=== PATIENT | male | born 1950 | race Caucasian/White ===

== ENCOUNTER 2020-03-25 22:24 | Emergency (ER) | payer BC, MEDICARE ==
--- NOTE | 2020-03-25 23:21 | ER Document Report ---
ED Medical Screen (RME) - General Chief Complaint: Urinary Problem Stated Complaint: URINARY TRACT INFECTION Time Seen by Provider: 03/25/20 23:18 Primary Care Provider: JOE VIRAMONTES FNP-C [Primary Care Provider] - Follow up as needed Information source: Patient Notes: Patient presents complaining of UTI. Patient reports burning with urination and hematuria. Patient reports fever of 100 at home. No nausea vomiting. Patient denies any abdominal tenderness or flank pain. Patient does have a history of hypertension, COPD and prediabetes. I have greeted and performed a rapid initial assessment of this patient. A comprehensive ED assessment and evaluation of the patient, analysis of test results and completion of the medical decision making process will be conducted by additional ED providers. - Related Data Allergies/Adverse Reactions: ibuprofen [Ibuprofen] Allergy (Severe, Verified 06/22/13 17:59) Facial swelling Past Medical History - Past Medical History Cardiac Medical History: Reports: Hx Hypertension GI Medical History: Reports: Hx Gastroesophageal Reflux Disease Past Surgical History: Reports: Hx Appendectomy, Hx Bowel Surgery - Immunizations Hx Diphtheria, Pertussis, Tetanus Vaccination: Yes - 2007 Physical Exam - Vital signs Vitals: Temp Pulse Resp BP Pulse Ox 98.3 F 108 H 20 157/83 H 95 03/25/20 23:08 03/25/20 23:08 03/25/20 23:08 03/25/20 23:08 03/25/20 23:08 - Back Back: Normal, Nontender. No: CVA tenderness Course - Vital Signs Vital signs: Temp Pulse Resp BP Pulse Ox 98.3 F 108 H 20 157/83 H 95 03/25/20 23:08 03/25/20 23:08 03/25/20 23:08 03/25/20 23:08 03/25/20 23:08 Doctor's Discharge - Discharge Referrals: JOE VIRAMONTES FNP-C [Primary Care Provider] - Follow up as needed
[2020-03-26 00:44] LABS: ABSOLUTE BASOPHILS # (AUTO) 0.1 10^3/uL (0.0-0.2); ABSOLUTE EOSINOPHILS # (AUTO) 0.1 10^3/uL (0.0-0.6); ABSOLUTE LYMPHOCYTES (AUTO) 2.5 10^3/uL (0.5-4.7); ABSOLUTE MONOCYTES (AUTO) 1.2 10^3/uL (0.1-1.4); ABSOLUTE NEUT (AUTO) 13.1 10^3/uL (1.7-8.2); BASOPHILS % (AUTO) 0.5 % (0-2); EOSINOPHILS % (AUTO) 0.5 % (0-6); HEMATOCRIT 44.3 % (37.9-51.0); HEMOGLOBIN 14.8 g/dL (13.5-17.0); LYMPHOCYTES % (AUTO) 14.7 % (13-45); MEAN CORPUSCULAR HEMOGLOBIN 28.6 pg (27.0-33.4); MEAN CORPUSCULAR HGB CONC 33.5 g/dL (32.0-36.0); MEAN CORPUSCULAR VOLUME 85 fl (80-97); MONOCYTES % (AUTO) 6.8 % (3-13); PLATELET COUNT 327 10^3/uL (150-450); RED BLOOD COUNT 5.19 10^6/uL (4.35-5.55); RED CELL DISTRIBUTION WIDTH 15.2 % (11.5-14.0); SEGMENTED NEUTROPHILS % (AUTO) 77.5 % (42-78); TOTAL CELLS COUNTED % (AUTO) 100 %
[2020-03-26 00:54] LABS: ALBUMIN 4.6 g/dL (3.5-5.0); ALKALINE PHOSPHATASE 109 U/L (38-126); ANION GAP 10 (5-19); ASPARTATE AMINO TRANSFERASE 26 U/L (17-59); BILIRUBIN,TOTAL 0.5 mg/dL (0.2-1.3); BLOOD UREA NITROGEN 17 mg/dL (7-20); CALCIUM 9.6 mg/dL (8.4-10.2); CARBON DIOXIDE 30 mmol/L (22-30); CHLORIDE 98 mmol/L (98-107); GLUCOSE 130 mg/dL (75-110); TOTAL PROTEIN 8.2 g/dL (6.3-8.2)
[2020-03-26 01:25] LABS: APPEARANCE,URINE CLOUDY; BILIRUBIN,URINE NEGATIVE (NEGATIVE); COLOR,URINE YELLOW; GLUCOSE, URINE NEGATIVE (NEGATIVE); KETONES,URINE NEGATIVE (NEGATIVE); LEUKOCYTE ESTERASE,URINE LARGE (NEGATIVE); NITRITE,URINE NEGATIVE (NEGATIVE); PROTEIN,URINE NEGATIVE (NEGATIVE); URINE SPECIFIC GRAVITY 1.018; UROBILINOGEN,URINE NEGATIVE mg/dL (<2.0)
[2020-03-26 01:40] LABS: ADD MANUAL MICROSCOPIC YES
[2020-03-26] MEDS ORDERED: CEFTRIAXONE INJ 1000 MG VIAL IM ONE (03:30)
[2020-03-26] MEDS ORDERED: LIDOCAINE 1% INJ-PF (10 MG/ML) 30 ML SDV INJ ONE (03:30)
[2020-03-26] MEDS ORDERED: PHENAZOPYRIDINE HCL 200 MG TABLET PO ONE (03:30)
--- NOTE | 2020-03-26 03:37 | ER Document Report ---
ED General - General Chief Complaint: Urinary Problem Stated Complaint: URINARY TRACT INFECTION Time Seen by Provider: 03/25/20 23:18 Primary Care Provider: JOE VIRAMONTES FNP-C [Primary Care Provider] - Follow up as needed Notes: 70-year-old male presents emergency department complaining of UTI. States that yesterday he developed burning with urination, decreased flow but denies any flank pain or frequency. Saw his primary care physician was placed on Keflex, states that he had improved flow but worsening pain. Was not started on Pyridium or Azo. States he was told to come to the emergency department should his temperature hit 100.4 or higher. Patient states that when it hit 100.0 he came to the emergency department. Denies altered mental status, denies history of recurrent urinary tract infection, denies penile discharge. - Related Data Allergies/Adverse Reactions: ibuprofen [Ibuprofen] Allergy (Severe, Verified 03/25/20 23:22) Facial swelling latex Allergy (Verified 03/25/20 23:22) Home Medications: keflex, lisinopril/hctz, omeprazole, symbicort, albuterol, flonase,. singlair, flexeril Past Medical History - General Information source: Patient - Social History Smoking Status: Former Smoker Family History: Reviewed & Not Pertinent Patient has homicidal ideation: No - Past Medical History Cardiac Medical History: Reports: Hx Hypertension GI Medical History: Reports: Hx Gastroesophageal Reflux Disease Past Surgical History: Reports: Hx Appendectomy, Hx Bowel Surgery - Immunizations Hx Diphtheria, Pertussis, Tetanus Vaccination: Yes - 2007 Review of Systems - Review of Systems Constitutional: See HPI, Fever EENT: No symptoms reported Genitourinary: See HPI Male Genitourinary: See HPI -: Yes All other systems reviewed and negative Physical Exam - Vital signs Vitals: Temp Pulse Resp BP Pulse Ox 98.3 F 108 H 20 157/83 H 95 03/25/20 23:08 03/25/20 23:08 03/25/20 23:08 03/25/20 23:08 03/25/20 23:08 Interpretation: Hypertensive, Tachycardic - Notes Notes: GENERAL: Alert, interacts well. No acute distress. HEAD: Normocephalic, atraumatic EYES: Pupils equal, round and reactive to light, extraocular movements intact. ENT: Oral mucosa moist, tongue midline. NECK: Full range of motion, supple, trachea midline. LUNGS: Clear to auscultation bilaterally, no wheezes, rales or rhonchi, no respiratory distress. HEART: Regular rate and rhythm, no murmurs, gallops, rubs. ABDOMEN: Soft, nontender, nondistended, bowel sounds present in all 4 quadrants. No CVA tenderness to percussion. EXTREMITIES: Moves all 4 extremities spontaneously, no edema, radial and dorsalis pedis pulses 2/4 bilaterally. No cyanosis. NEUROLOGICAL: Alert and oriented x3, normal speech. PSYCH: Normal mood, normal affect. SKIN: Warm, Dry, normal turgor, no rashes or lesions noted. Course - Re-evaluation Re-evalutation: 03/26/20 03:38 CBC shows leukocytosis at 17, CMP unremarkable, urinalysis shows large blood and large leukocyte esterase. This is been sent for culture. Patient is already on Keflex however I will give him a shot of Rocephin as well in case Keflex will not cover this urinary tract infection. Patient has no signs of sepsis, no si gns of altered mental status. Patient will be discharged home on Ezol and urine has been sent for culture. Patient is agreeable with plan. Discharged home. As there is no flank pain and the microscopic on this urine only shows 5-10 RBCs very low suspicion for kidney stone. 03/26/20 03:39 - Vital Signs Vital signs: Temp Pulse Resp BP Pulse Ox 98.5 F 104 H 20 137/68 H 99 03/26/20 01:58 03/26/20 01:58 03/26/20 01:58 03/26/20 01:58 03/26/20 01:58 - Laboratory Result Diagrams: 03/26/20 00:33 03/26/20 00:33 Laboratory results interpreted by me: 03/26/20 03/26/20 03/26/20 00:33 00:33 00:33 WBC 17.0 H RDW 15.2 H Absolute Neuts (auto) 13.1 H Glucose 130 H Urine Blood LARGE H Ur Leukocyte Esterase LARGE H Discharge - Discharge Clinical Impression: UTI (urinary tract infection) Qualifiers: Urinary tract infection type: acute cystitis Hematuria presence: with hematuria Qualified Code(s): N30.01 - Acute cystitis with hematuria Condition: Stable Disposition: HOME, SELF-CARE Additional Instructions: Urinary Tract Infection Your evaluation indicates that you have a urinary tract infection. This is due to germs growing in the bladder. This is a common problem. This infection usually responds quickly to antibiotics. Your antibiotic should be taken exactly as prescribed. Drink plenty of fluids -- three to four quarts a day. Occasionally, a bladder anesthetic will be prescribed to help stop the feeling of urgency until the antibiotic has a chance to clear the infection. T his may cause your urine to be dark orange. Certain urine infections require a culture. If the doctor obtained a culture, the results will be back in two days. You should call to see if a change in treatment is needed. A repeat urinalysis after you finish treatment is often recommended. The physician will let you know if further testing is required. Call the doctor if you develop fever, chills, flank pain, inability to urinate, or blood in the urine. Come back if your temperature hits 100.4 or higher. Return for pain that radiates to your back, any confusion or any new or concerning symptoms. We have sent your urine for culture, we will call you if you need a change in a ntibiotic. Please take Pyridium, also known as Azo, 200 mg every 8 hours as needed for pain with urination. You may take this for 3 days. Referrals: JOE VIRAMONTES FNP-C [Primary Care Provider] - Follow up as needed
[2020-03-26 04:16] VITALS: BP 145/81
== END 2020-03-26 04:15 | disposition home or self-care (01) ==
LOC: ER 22:24
DX: N30.01 Acute cystitis with hematuria (principal); I10 Essential (primary) hypertension; K21.9 Gastro-esophageal reflux disease without esophagitis; Z79.899 Other long term (current) drug therapy; Z79.51 Long term (current) use of inhaled steroids; Z88.8 Allergy status to other drugs, medicaments and biological substances; Z91.040 Latex allergy status
CPT/HCPCS: 99283; 96372; 80053; 36415; 85025; 81001; J3490 ×2; J0696; 87086